=== PATIENT | female | born 1940 | race Hispanic/Latino ===

== ENCOUNTER 2022-07-08 15:17 | Emergency (ER) | payer OTHER, MEDICARE, MEDICAID ==
[2022-07-08] MEDS ORDERED: Boostrix 0.5 ML (Tdap) VIAL (>/=7 yrs of age) ONE (15:48)
== END 2022-07-08 18:37 | disposition home or self-care (01) ==
LOC: MADERS 15:17
DX: S52.531A Colles' fracture of right radius, initial encounter for closed fracture (principal); S52.611A Displaced fracture of right ulna styloid process, initial encounter for closed fracture; S00.531A Contusion of lip, initial encounter; I10 Essential (primary) hypertension; Z23 Encounter for immunization; W01.0XXA Fall on same level from slipping, tripping and stumbling without subsequent striking against object, initial encounter
CPT/HCPCS: 25600; 90471; 90715